=== PATIENT | male | born 1955 | race Caucasian/White ===

== ENCOUNTER 2017-06-23 06:15 | Inpatient (IN) | payer OTHER ==
[2017-06-23] MEDS ORDERED: MORPHINE SULFATE 5 MG/ML PFS IVP ONE ×2 (06:33→09:31)
[2017-06-23] MEDS ORDERED: ONDANSETRON HCL IV 4 MG/2 ML VIAL IVP ONE ×2 (06:33→11:09)
[2017-06-23] MEDS ORDERED: DIAZEPAM 5 MG TABLET PO ONE (06:33)
--- NOTE | 2017-06-23 06:40 | Emergency Department Record ---
History of Present Illness - General Chief Complaint: Back Pain/Injury Stated Complaint: "BUMPED BACK ON COUNTER" Time Seen by Provider: 06/23/17 06:26 Source: Patient Mode of Arrival: Ambulatory Limitations: No limitations - History of Present Illness Initial Comments: 61 yo male presents to ED for evaluation of left sided flank pain that began last night after "bumping himself into a counter". Patient reports taking Flexeril for his symptoms without improvement. Patient reports pain and spasms to the affected area. Patient reports previous health problems "that are in your system, he's here all the time". Complaint: Back pain, Back injury Onset/Timin -: Hour(s) Place: Home Severity: Severe Severity scale (1-10): >10 Quality: Sharp, Stabbing Consistency: Constant Improves With: None Worsens With: Movement, Sitting upright Context: Other Associated Symptoms: Denies other symptoms Treatments Prior to Arrival: Other (Flexeril) Treatment Prior to Arrival Comment:: none - Related Data Allergies Allergy/AdvReac Type Severity Reaction Status Date / Time codeine [CODEINE] Allergy Unknown HIVES Unverified 05/16/17 13:33 Travel Screening - Travel/Exposure Within Last 30 Days Have you traveled within the last 30 days?: No - Travel/Exposure Within Last Year Have you traveled outside the [place] in the last year?: No - Additonal Travel Details Have you been exposed to anyone with a communicable illness?: No - Travel Symptoms Symptom Screening: None Review of Systems Constitutional: Denies: Chills, Fever, Malaise, Night sweats Eyes: Denies: Eye discharge, Eye pain ENT: Denies: Congestion, Ear pain, Epistaxis Respiratory: Denies: Cough, Dyspnea Cardiovascular: Denies: Chest pain, Dyspnea on exertion Endocrine: Denies: Fatigue, Heat or cold intolerance Gastrointestinal: Denies: Abdominal pain, Nausea, Vomiting Genitourinary: Denies: Dysuria, Hematuria, Incontinence Musculoskeletal: Reports: Back pain. Denies: Arthralgia, Gout, Joint swelling Skin: Denies: Bruising, Change in color Neurological: Denies: Abnormal gait, Confusion, Headache, Seizure Psychiatric: Denies: Anxiety Hematological/Lymphatic: Denies: Anemia, Blood Clots Past Medical History - SOCIAL HISTORY Smoking Status: Former smoker Alcohol Use: None Drug Use: None - RESPIRATORY Hx Respiratory Disorders: Yes Hx Asthma: Yes - CARDIOVASCULAR Hx Cardio Disorders: No - NEURO Hx Neuro Disorders: No - GI Hx GI Disorders: Yes Hx Pancreatitis: Yes Comment:: bloating - Hx Genitourinary Disorders: No - ENDOCRINE Hx Endocrine Disorders: No - MUSCULOSKELETAL Hx Musculoskeletal Disorders: Yes Hx Arthritis: Yes - PSYCH Hx Anxiety: Yes Hx Depression: Yes - HEMATOLOGY/ONCOLOGY Hx Hematology/Oncology Disorders: No Family Medical History Any Significant Family History?: No Physical Exam - General General Appearance: Alert, Oriented x3, Cooperative, Moderate distress Limitations: No limitations - Head Head exam: Atraumatic, Normocephalic, Normal inspection Head exam detail: negative: Abrasion, Contusion, Infante's sign, General tenderness, Hematoma, Laceration - Eye Eye exam: Normal appearance. negative: Conjunctival injection, Periorbital swelling, Periorbital tenderness, Scleral icterus - ENT Ear exam: negative: Auricular hematoma, Auricular trauma Nasal Exam: negative: Active bleeding, Discharge, Dried blood, Foreign body Mouth exam: negative: Drooling, Laceration, Muffled voice, Tongue elevation - Neck Neck exam: Normal inspection. negative: Meningismus, Tenderness - Respiratory Respiratory exam: Normal lung sounds bilaterally. negative: Rales, Respiratory distress, Rhonchi, Stridor - Cardiovascular Cardiovascular Exam: Regular rate, Normal rhythm, Normal heart sounds - GI/Abdominal GI/Abdominal exam: Soft. negative: Rebound, Rigid, Tenderness - Rectal Rectal exam: Deferred - exam: Deferred - Extremities Extremities exam: Normal inspection. negative: Calf tenderness, Pedal edema, Tenderness - Back Back exam: Reports: CVA tenderness (L). Denies: Paraspinal tenderness, Rash noted, Vertebral tenderness - Neurological Neurological exam: Alert, Normal gait, Oriented X3 - Psychiatric Psychiatric exam: Normal affect, Normal mood - Skin Skin exam: Normal color. negative: Abrasion Type of lesion: negative: abrasion Course Vital Signs 06/23/17 06:27 Temperature 98.9 F Pulse Rate [ 122 H Pulse Ox Probe] Respiratory 20 Rate Blood Pressure 134/75 [Left Arm] Pulse Ox 96 - Reevaluation(s) Reevaluation #1: 06/23/17 06:55 Case was discussed with oncoming provider, will assume care pending laboratory studies and CT imaging results. Medical Decision Making - Lab Data Result diagrams: 06/23/17 06:30 06/23/17 06:30 Disposition Forms: Patient Portal Access Quality - Quality Measures Quality Measures: N/A - Blood Pressure Screening Does Patient Have Any of the Following: No Blood Pressure Classification: Pre-Hypertensive BP Reading Systolic Measurement: 134 Diastolic Measurement: 75 Screening for High Blood Pressure: < Pre-Hypertensive BP, F/U Documented > [ [id number]] Pre-Hypertensive Follow-up Interventions: Referral to alternative/primary care provider.
[2017-06-23] MEDS ORDERED: 0.9 % SODIUM CHLORIDE 1000ML 1,000 ML IV SCH (06:45)
[2017-06-23 06:52] LABS: HEMOGLOBIN 13.6 gm/dl (14.0-18.0); MEAN CELL VOLUME 87.2 fl (81-97); MEAN CORPUSCULAR HEMOGLOBIN 30.4 pg (27-33); MEAN CORPUSCULAR HGB CONC 34.9 g/dl (32-36); MEAN PLATELET VOLUME 8.8 fl (7.4-10.4); PLATELET COUNT 290 K/uL (130-400); RED BLOOD COUNT 4.47 M/uL (4.40-5.70); RED CELL DISTRIBUTION WIDTH 13.6 % (11.5-14.5); WHITE BLOOD COUNT W/O DIFF 7.4 K/uL (4.2-12.2)
[2017-06-23 07:25] LABS: URINE APPEARANCE CLEAR; URINE BILIRUBIN NEGATIVE (NEGATIVE); URINE BLOOD NEGATIVE (NEGATIVE); URINE COLOR YELLOW; URINE GLUCOSE (UA) NEGATIVE (NEGATIVE); URINE KETONE 15 mg/dL (NEGATIVE); URINE LEUKOCYTE ESTERASE NEGATIVE (NEGATIVE); URINE NITRITE NEGATIVE (NEGATIVE); URINE PROTEIN NEGATIVE (NEGATIVE); URINE UROBILINOGEN 0.2 E.U./dL (0.20 - 1.00)
[2017-06-23 07:42] LABS: BLOOD UREA NITROGEN 10 mg/dL (6-20); CREATININE 0.9 mg/dL (0.7-1.2); EST GLOMERULAR FILTRATION RATE > 60 mL/min
[2017-06-23 07:43] LABS: TOTAL PROTEIN 7.7 g/dL (6.6-8.7)
[2017-06-23 07:45] LABS: GLUCOSE,RANDOM 89 mg/dL (74-109)
[2017-06-23 07:48] LABS: ALB/GLOB RATIO 1.8 (1.1-1.8); ALBUMIN 4.9 g/dL (4.0-5.0); ALKALINE PHOSPHATASE 83 U/L (40-129); ALT/SGPT 26 U/L (<41); AST/SGOT 44 U/L (10.0-50.0)
--- NOTE | 2017-06-23 08:26 | Emergency Department Record ---
History of Present Illness - General Chief Complaint: Back Pain/Injury Stated Complaint: "BUMPED BACK ON COUNTER" Time Seen by Provider: 06/23/17 06:26 Source: Patient Limitations: No limitations - History of Present Illness Onset/Timin -: Hour(s) Place: Home Severity: Severe Severity scale (1-10): >10 Quality: Sharp, Stabbing Consistency: Constant Improves With: None Worsens With: Movement, Sitting upright Context: Other Associated Symptoms: Denies other symptoms Treatments Prior to Arrival: Other (Flexeril) Treatment Prior to Arrival Comment:: none - Related Data Allergies Allergy/AdvReac Type Severity Reaction Status Date / Time codeine [CODEINE] Allergy Unknown HIVES Unverified 05/16/17 13:33 Travel Screening - Travel/Exposure Within Last 30 Days Have you traveled within the last 30 days?: No - Travel/Exposure Within Last Year Have you traveled outside the [place] in the last year?: No - Additonal Travel Details Have you been exposed to anyone with a communicable illness?: No - Travel Symptoms Symptom Screening: None Review of Systems Constitutional: Denies: Chills, Fever, Malaise, Night sweats Eyes: Denies: Eye discharge, Eye pain ENT: Denies: Congestion, Ear pain, Epistaxis Respiratory: Denies: Cough, Dyspnea Cardiovascular: Denies: Chest pain, Dyspnea on exertion Endocrine: Denies: Fatigue, Heat or cold intolerance Gastrointestinal: Denies: Abdominal pain, Nausea, Vomiting Genitourinary: Denies: Dysuria, Hematuria, Incontinence Musculoskeletal: Reports: Back pain. Denies: Arthralgia, Gout, Joint swelling Skin: Denies: Bruising, Change in color Neurological: Denies: Abnormal gait, Confusion, Headache, Seizure Psychiatric: Denies: Anxiety Hematological/Lymphatic: Denies: Anemia, Blood Clots Past Medical History - SOCIAL HISTORY Smoking Status: Former smoker Alcohol Use: None Drug Use: None - RESPIRATORY Hx Respiratory Disorders: Yes Hx Asthma: Yes - CARDIOVASCULAR Hx Cardio Disorders: No - NEURO Hx Neuro Disorders: No - GI Hx GI Disorders: Yes Hx Pancreatitis: Yes Comment:: bloating - Hx Genitourinary Disorders: No - ENDOCRINE Hx Endocrine Disorders: No - MUSCULOSKELETAL Hx Musculoskeletal Disorders: Yes Hx Arthritis: Yes - PSYCH Hx Anxiety: Yes Hx Depression: Yes - HEMATOLOGY/ONCOLOGY Hx Hematology/Oncology Disorders: No Family Medical History Any Significant Family History?: No Physical Exam - General Limitations: No limitations Course Vital Signs 06/23/17 06/23/17 06:27 07:12 Temperature 98.9 F Pulse Rate [ 122 H 98 H Pulse Ox Probe] Respiratory 20 20 Rate Blood Pressure 134/75 110/64 [Left Arm] Pulse Ox 96 94 L - Reevaluation(s) Reevaluation #1: The patient is doing a lot better at this time. He is resting comfortably in no distress. We are waiting on his CT report and I did order a repeat electrolytes due to the previous abnormality of the sodium which I believe is not correct. 06/23/17 08:25 Reevaluation #2: The patient is doing well but is still having some L flank pain. I did explain to him that he does have a rib fx there. I also did recheck his Lytes and his Sodium is still significantly low. Due to that fact I did discuss the need to admit the patient to the hospital overnight and treat his pain and also the URI. The patient does agree to the plan. 06/23/17 09:42 Reevaluation #3: I did discuss the case with Dr. Phillips and he does accept the admission to the hospital. 06/23/17 10:01 Medical Decision Making - Data Complexity MDM Data: Labs Ordered and/or Reviewed, X-Ray Ordered and/or Reviewed, EKG Ordered and/or Reviewed - Lab Data Result diagrams: 06/23/17 06:30 06/23/17 07:50 Lab Results 06/23/17 06/23/17 06/23/17 Range/Units 06:30 06:30 07:15 WBC 7.4 (4.2-12.2) K/uL RBC 4.47 (4.40-5.70) M/uL Hgb 13.6 L (14.0-18.0) gm/dl Hct 39.0 L (42.0-52.0) % MCV 87.2 (81-97) fl MCH 30.4 (27-33) pg MCHC 34.9 (32-36) g/dl RDW 13.6 (11.5-14.5) % Plt Count 290 (130-400) K/uL MPV 8.8 (7.4-10.4) fl Neutrophils % 54.0 (47-80) % Band Neutrophils % 0.0 (0-5) % Eosinophils % Not Reportable Basophils % Not Reportable Lymphocytes 21.0 (16-45) % Monocytes 9.0 (0-9) % Basophils 0.0 (0-6) % Eosinophil Count 16.0 H (0-6) % Sodium 123 L (136-145) mmol/L Potassium 4.8 H (3.4-4.5) mmol/L Chloride 84 L (98-107) mmol/L Carbon Dioxide 22.0 (22-29) mmol/L Anion Gap 17.0 H (7-16) BUN 10 (6-20) mg/dL Creatinine 0.9 (0.7-1.2) mg/dL Estimated GFR > 60 mL/min Random Glucose 89 (74-109) mg/dL Calcium 9.5 (8.6-10.0) mg/dL Total Bilirubin 1.20 H (0.2-1.0) mg/dL AST 44 (10.0-50.0) U/L ALT 26 (<41) U/L Alkaline Phosphatase 83 (40-129) U/L Total Protein 7.7 (6.6-8.7) g/dL Albumin 4.9 (4.0-5.0) g/dL Globulin 2.8 (1.4-4.8) gm/dL Albumin/Globulin Ratio 1.8 (1.1-1.8) Urine Color Yellow Urine Appearance Clear Urine pH 6.0 (5.0-8.0) Ur Specific [place] 1.015 (1.002-1.030) Urine Protein Negative (NEGATIVE) Urine Glucose (UA) Negative (NEGATIVE) Urine Ketones 15 mg/dl H (NEGATIVE) Urine Blood Negative (NEGATIVE) Urine Nitrite Negative (NEGATIVE) Urine Bilirubin Negative (NEGATIVE) Urine Urobilinogen 0.2 (0.20 - 1.00) E.U./dL Ur Leukocyte Esterase Negative (NEGATIVE) - EKG Data -: EKG Interpreted by Me EKG: No Acute Changes, Normal EKG - Radiology Data Radiology results: Report reviewed (CT: L T11 nondisplaced rib fx. Neg for any intra-abdominal process.) Disposition Disposition: Admit Clinical Impression: Hyponatremia Disposition: Still a Patient at [facility] Decision to Admit: Admit from ER Decision to Admit Date: 06/23/17 Decision to Admit Time: 10:02 Accepting Physician: Alan Time Discussed w/Accepting Physician: 10:02 Condition: (2) Stable Time of Disposition: 10:02 Quality - Quality Measures Quality Measures: N/A - Blood Pressure Screening View Details: Yes Does Patient Have Any of the Following: No Blood Pressure Classification: Normal BP Reading Systolic Measurement: 112 Diastolic Measurement: 71 Screening for High Blood Pressure: < Normal BP, F/U Not Required > [G8783]
[2017-06-23] MEDS ORDERED: METHYLPREDNISOLONE SOD 40MG/VIAL IVP ONE (09:31)
[2017-06-23] MEDS ORDERED: AZITHROMYCIN 500 MG TABLET PO ONE (09:32)
[2017-06-23] MEDS ORDERED: Non-Formulary MISC (Meloxicam [Meloxicam] 15 MG) PO PRN (11:09)
[2017-06-23] MEDS ORDERED: FLU VAC QS 2017-18 (INPT, 6MO+) 60MCG/0.5ML IM ONE (11:45)
[2017-06-23] MEDS ORDERED: CYCLOBENZAPRINE 10MG TABLET PO PRN (11:58)
[2017-06-23] MEDS ORDERED: 0.9 % SODIUM CHLORIDE 1000ML 1,000 ML IV PRN (12:03)
--- NOTE | 2017-06-23 12:51 | History & Physical ---
History of Present Illness - Date of Service Date of Service for History & Physical: 06/23/17 - History of Present Illness Admitting Diagnosis: 1. Acute Hyponatremia. 2. Asthma Exacerbation. 3. L T11 Rib Fx. History of Present Illness: Mr. Mills is a 61 y/o male here after having a fall at home and with a one week complaint of progressive shortness of breath. he says that he had a mis step while cooking and fell injuring his left side. The patient has had falls fracturing his ribs in the past. He denies dizziness, weakness, unsteady gait or head injury from the fall. The patient does report alcohol use daily drinking a minimum of six beers. Additionally, he has a history of severe uncontrolled asthma with more than four exacerbations a year requiring hospital admission abut denies ever being intubated. On arrival to the ED the patient's chest examination reveals non-displaced fracture of the 11th left lateral rib and a healed 10th right lateral rib fracture and labs showed severe hyponatremia of 124. The patient's saturations are stable, without requiring supplemental oxygenation. He was started on IV solumedrol, and respiratory therapy with albuterol. He was given 1 liter 0.9% Nacl in the ED and admitted for monitoring of electrolytes and his asthma exacerbations. Travel Screening - Travel/Exposure Within Last 30 Days Have you traveled within the last 30 days?: No - Travel/Exposure Within Last Year Have you traveled outside the [place] in the last year?: No - Additonal Travel Details Have you been exposed to anyone with a communicable illness?: No - Travel Symptoms Symptom Screening: None Review of Systems Constitutional: Denies: Chills, Fever, Malaise, Night sweats Eyes: Denies: Eye discharge, Eye pain ENT: Denies: Congestion, Ear pain, Epistaxis Respiratory: Denies: Cough, Dyspnea Cardiovascular: Denies: Chest pain, Dyspnea on exertion Endocrine: Denies: Fatigue, Heat or cold intolerance Gastrointestinal: Denies: Abdominal pain, Nausea, Vomiting Genitourinary: Denies: Dysuria, Hematuria, Incontinence Musculoskeletal: Reports: Back pain. Denies: Arthralgia, Gout, Joint swelling Skin: Denies: Bruising, Change in color Neurological: Denies: Abnormal gait, Confusion, Headache, Seizure Psychiatric: Denies: Anxiety Hematological/Lymphatic: Denies: Anemia, Blood Clots Past Medical History - SOCIAL HISTORY Smoking Status: Former smoker Alcohol Use: Heavy Alcohol Use Comment: 6 pack of beer daily, last drink 3pm yesterday Drug Use: None - RESPIRATORY Hx Respiratory Disorders: Yes Hx Asthma: Yes Hx Bronchitis: Yes Hx Dyspnea: Yes - CARDIOVASCULAR Hx Cardio Disorders: Yes Hx Cardiac Cath: Yes (at [facility]) Hx Chest Pain: Yes Hx Hypertension: Yes - NEURO Hx Neuro Disorders: Yes Hx Headaches: Yes Hx Seizures: Yes (with mini stroke about 30 years ago) Hx TIA: Yes ("mini stroke" about 30 years ago) - GI Hx GI Disorders: Yes Hx Reflux: Yes Hx Pancreatitis: Yes Comment:: bloating, inguinal hernia repair - Hx Genitourinary Disorders: No - ENDOCRINE Hx Endocrine Disorders: No - MUSCULOSKELETAL Hx Musculoskeletal Disorders: Yes Hx Arthritis: Yes - PSYCH Hx Psych Problems: Yes Hx Anxiety: Yes Hx Depression: Yes - HEMATOLOGY/ONCOLOGY Hx Hematology/Oncology Disorders: No Hx Cancer: Yes (small cell carcinoma, basal cell carcinoma) Hx Chemotherapy: No Hx Radiation Therapy: No Family Medical History Any Significant Family History?: Yes Hx Alcohol Use: Father, Mother Hx Cancer: Father, Mother Hx Dementia: Mother Hx HTN: Mother Hx Liver Disease: Mother Hx Resp Disorders: Brother/Sister Hx Seizures: Mother Hx Stroke: Mother H&P Meds/Allergies - Allergies Allergies: Allergies Allergy/AdvReac Type Severity Reaction Status Date / Time codeine [CODEINE] Allergy Unknown HIVES Unverified 05/16/17 13:33 - Active Medications Active Medications: Current Medications Albuterol Sulfate () 2.5 mg INH Q4H PRN PRN Reason: Asthma Azithromycin (Zithromax) 250 mg PO DAILY JOHN Cyclobenzaprine HCl (Flexeril) 10 mg PO QHS PRN PRN Reason: MUSCLE SPASM Cyclobenzaprine HCl (Flexeril) 10 mg PO TID PRN PRN Reason: MUSCLE SPASMS Sodium Chloride () 1,000 mls @ 0 mls/hr IV .Q0M [facility] PRN Reason: Wide Open Last Infusion: 06/23/17 12:01 Dose: Infused Sodium Chloride () 1,000 mls @ 150 mls/hr IV .Q6H40M PRN PRN Reason: fluids Sodium Chloride () 1,000 mls @ 55 mls/hr IV .[id number] [facility] Meloxicam (Mobic) 15 mg PO DAILY [facility] Methylprednisolone Sodium Succinate (Solu-Medrol) 40 mg IVP DAILY ONE Stop: 06/24/17 10:23 Montelukast Sodium (Singulair) 10 mg PO DAILY [facility] Morphine Sulfate (Morphine Sulfate) 5 mg IVP Q4H PRN PRN Reason: Analgesia Stop: 06/30/17 11:10 Pantoprazole Sodium (Protonix) 40 mg PO DAILY [facility] Physical Exam - Vital Signs Vital Signs: Vital Signs - Last 24 Hrs Temp Pulse Pulse Resp BP BP Pulse Ox 06/23/17 11:09 97.5 F L 85 20 147/81 96 06/23/17 10:56 86 16 112/71 96 - General General Appearance: Alert, Oriented x3, Cooperative, Moderate distress Limitations: No limitations - Head Head exam: Atraumatic, Normocephalic, Normal inspection Head exam detail: negative: Abrasion, Contusion, Infante's sign, General tenderness, Hematoma, Laceration - Eye Eye exam: Normal appearance. negative: Conjunctival injection, Periorbital swelling, Periorbital tenderness, Scleral icterus - ENT Ear exam: negative: Auricular hematoma, Auricular trauma Nasal Exam: negative: Active bleeding, Discharge, Dried blood, Foreign body Mouth exam: negative: Drooling, Laceration, Muffled voice, Tongue elevation - Neck Neck exam: Normal inspection. negative: Meningismus, Tenderness - Respiratory Respiratory exam: Normal lung sounds bilaterally. negative: Rales, Respiratory distress, Rhonchi, Stridor - Cardiovascular Cardiovascular Exam: Regular rate, Normal rhythm, Normal heart sounds - GI/Abdominal GI/Abdominal exam: Soft. negative: Rebound, Rigid, Tenderness - Rectal Rectal exam: Deferred - exam: Deferred - Extremities Extremities exam: Normal inspection. negative: Calf tenderness, Pedal edema, Tenderness - Back Back exam: Reports: CVA tenderness (L). Denies: Paraspinal tenderness, Rash noted, Vertebral tenderness - Neurological Neurological exam: Alert, Normal gait, Oriented X3 - Psychiatric Psychiatric exam: Normal affect, Normal mood - Skin Skin exam: Normal color. negative: Abrasion Type of lesion: negative: abrasion Results - Labs Result Diagrams: 06/23/17 06:30 06/23/17 07:50 VTE H&P Assessment - Risk for VTE Risk for VTE: Yes Risk Level: Moderate Risk Assessment Date: 06/23/17 Risk Assessment Time: 13:09 VTE Orders Placed or Will Be Placed: Yes Plan - Inpatient Certification Inpatient Certification: Admit to inpatient care: Based on my medical assessment, after consideration of patient's risk factors (age, co-morbidities and patient presenting symptoms and acuity), I expect that this patient will remain in the hospital greater than or equal to two midnights and that the services needed warrant inpatient care because: Patient Risk Factors: Fall/Etoh withdrawal Estimated length of stay: 2 days The patient may reasonably be expected to be discharged or transferred to a hospital within 96 hours after admission to [facility]. I certify that my determination is in accordance with my understanding of Medicare requirements for reasonable and necessary inpatient services. 06/23/17 13:13 - Detailed Diagnosis and Plan (1) Left rib fracture Current Visit: Yes Status: Acute Base Code: S22.32XA - FRACTURE OF ONE RIB, LEFT SIDE, INIT FOR CLOS FX Comment: - acute non-displaced fracture of the 11th rib on the left. - morphine 5mg IV q4H PRN, Mobic 15mg daily, cyclobenzaprine 10mg TID PRN - incentive spirometry (2) Asthma exacerbation Current Visit: Yes Status: Acute Qualifiers: Asthma severity: severe Asthma persistence: persistent Qualified Code(s) : J45.51 - Severe persistent asthma with (acute) exacerbation Base Code: J45.901 - UNSPECIFIED ASTHMA WITH (ACUTE) EXACERBATION Comment: - CXR normal, Influenza A/B PCR ordered. - >4 exacerbations yearly requiring frequent use of PO steroids. On daily albuterol. spiriva, symbicort, qvar. - respiratory therapy w/ albuterol Q4H, Breo daily, Prednisons 40mg daily, peak flow measures. (3) Hyponatremia Current Visit: Yes Status: Acute Base Code: E87.1 - HYPO-OSMOLALITY AND HYPONATREMIA Comment: - severe hyponatremia w/ unknown etiology. Patient appears euvolemic. Already hydrated so cannot check Osmolality and urine Na. - likely as a result of excessive beer intake (8-10 beers/day ie Beer drinkers potomania possible. - careful Na correction over 12-24 hours. Pt already bolused 2 liters 0.9% Nacl. Calculatedrate of correction is 55mL/hr over 12-24hrs to a target of 130 meq. - avoid overcorrection with concern for central pontine myelynosis. - Check lytes at 6pm and in the am. (4) HTN (hypertension) Current Visit: Yes Status: Acute Base Code: I10 - ESSENTIAL (PRIMARY) HYPERTENSION Comment: - currently controlled @ 112/71 - hold BP medications and resume in the morning. (5) Alcohol use Current Visit: Yes Status: Acute Base Code: Z78.9 - OTHER SPECIFIED HEALTH STATUS Comment: - 8-10 beers daily - CIWA protocol, Fall precautions/Seizure precuations. (6) DVT prophylaxis Current Visit: Yes Status: Acute Base Code: [id number] - Comment: - Lovenox 40mg QD (7) Full code status Current Visit: Yes Status: Acute Base Code: Z78.9 - OTHER SPECIFIED HEALTH STATUS Comment: FULL CODE - Disposition Likely d/c home within 2 days.
--- NOTE | 2017-06-23 13:05 | CT SCAN REPORT ---
EXAM: CT OF THE ABDOMEN AND PELVIS WITH CONTRAST HISTORY: FLANK PAIN. TECHNIQUE: Sequential axial images were obtained from the diaphragms through the ischiorectal fossa after intravenous administration of 100 ml of Omnipaque 300 contrast material. FINDINGS: The visualized lung bases appear normal. The heart and pericardium appear normal. The liver, gallbladder, pancreas and spleen appear normal. The adrenal glands and kidneys appear normal. There are no CT findings suggestive of obstructive uropathy. The urinary bladder appears normal. There is equivocal mild wall thickening of the stomach. Gastritis cannot be entirely excluded. The small bowel appears normal. The appendix is visualized and appears normal. There is atheromatous change of the abdominal vasculature. IMPRESSION: 1. EQUIVOCAL MILD WALL THICKENING OF THE PROXIMAL STOMACH. CORRELATION WITH PATIENT'S CLINICAL EXAM AND POSSIBLE DIRECT VISUALIZATION IS RECOMMENDED. 2. NO CT FINDINGS SUGGESTIVE OF OBSTRUCTIVE UROPATHY. 3. THE APPENDIX IS VISUALIZED AND APPEARS NORMAL. JOB NUMBER: [id number] MTDD
--- NOTE | 2017-06-23 13:07 | RADIOLOGY REPORT ---
EXAM: CHEST, TWO VIEWS HISTORY: DIFFICULTY BREATHING. TECHNIQUE: Frontal and lateral views of the chest were performed. FINDINGS: The heart size is normal. No pulmonary vascular congestion. No infiltrate or pleural effusion. There is a nondisplaced left lateral eleventh rib fracture deformity. IMPRESSION: NONDISPLACED LEFT LATERAL ELEVENTH RIB FRACTURE DEFORMITY. JOB NUMBER: [id number] MTDD
[2017-06-23] MEDS: MORPHINE SULFATE 5 MG/ML PFS IVP PRN ×2 (14:32→18:37)
[2017-06-23] MEDS: 0.9 % SODIUM CHLORIDE 1000ML 1,000 ML IV SCH (18:00)
[2017-06-23] MEDS: ENOXAPARIN 40 MG/0.4 ML SYR SQ SCH (18:37)
[2017-06-23 20:08] LABS: BLOOD UREA NITROGEN 20 mg/dL (6-20); CREATININE 1.1 mg/dL (0.7-1.2); EST GLOMERULAR FILTRATION RATE > 60 mL/min
[2017-06-23 20:11] LABS: GLUCOSE,RANDOM 204 mg/dL (74-109)
[2017-06-23] MEDS: ALBUTEROL SULFATE (0.083%) 2.5 MG/3 ML NEB INH PRN (20:57)
[2017-06-23] MEDS: CYCLOBENZAPRINE 10MG TABLET PO PRN (21:11)
[2017-06-23] MEDS ORDERED: Non-Formulary MISC (Omeprazole [Omeprazole] 20 MG) PO SCH (22:00)
[2017-06-23] MEDS ORDERED: BREO (FLUTICASONE/VILANTEROL) 200MCG/25MCG INHALER INH SCH (22:00)
[2017-06-24] MEDS: ALBUTEROL SULFATE (0.083%) 2.5 MG/3 ML NEB INH PRN ×2 (01:12→06:01)
[2017-06-24] MEDS: MORPHINE SULFATE 5 MG/ML PFS IVP PRN (01:30)
[2017-06-24 06:08] LABS: BASO % 0.1 % (0-6); GRAN % 77.6 % (47-80); HEMATOCRIT 35.5 % (42.0-52.0); HEMOGLOBIN 11.9 gm/dl (14.0-18.0); MEAN CELL VOLUME 90.1 fl (81-97); MEAN CORPUSCULAR HEMOGLOBIN 30.2 pg (27-33); MEAN CORPUSCULAR HGB CONC 33.5 g/dl (32-36); MEAN PLATELET VOLUME 9.2 fl (7.4-10.4); MONO % 13.3 % (0-9); PLATELET COUNT 234 K/uL (130-400); RED BLOOD COUNT 3.94 M/uL (4.40-5.70); RED CELL DISTRIBUTION WIDTH 13.8 % (11.5-14.5); WHITE BLOOD COUNT W/O DIFF 8.1 K/uL (4.2-12.2)
[2017-06-24] MEDS: CYCLOBENZAPRINE 10MG TABLET PO PRN (07:50)
[2017-06-24] MEDS ORDERED: PREDNISONE 20 MG TAB PO SCH (08:00)
[2017-06-24 09:42] LABS: BLOOD UREA NITROGEN 17 mg/dL (6-20); CREATININE 0.9 mg/dL (0.7-1.2); EST GLOMERULAR FILTRATION RATE > 60 mL/min; GLUCOSE,RANDOM 112 mg/dL (74-109)
[2017-06-24] MEDS: ENOXAPARIN 40 MG/0.4 ML SYR SQ SCH (09:53)
[2017-06-24] MEDS ORDERED: PANTOPRAZOLE SODIUM 40 MG TABLET PO SCH (10:00)
[2017-06-24] MEDS ORDERED: MONTELUKAST SODIUM 10MG TABLET PO SCH (10:00)
[2017-06-24] MEDS ORDERED: UMECLIDINIUM BROMIDE (INCRUSE) 62.5MCG IH SCH (10:00)
[2017-06-24] MEDS ORDERED: AZITHROMYCIN 250 MG TABLET PO SCH (10:00)
[2017-06-24] MEDS ORDERED: VALSARTAN 160 MG PO SCH (10:00)
[2017-06-24] MEDS ORDERED: MELOXICAM 7.5 MG TABLET PO SCH (10:00)
[2017-06-24] MEDS ORDERED: METHYLPREDNISOLONE SOD 40MG/VIAL IVP ONE (10:22)
--- NOTE | 2017-06-24 11:31 | Discharge Summary ---
Providers Discharge Summary Date: 06/24/17 Date of admission: 06/23/17 10:49 Attending physician: ALESSIO COBOS Primary care physician: YONAS STANLEY Physical Exam - Vital Signs Vital Signs: Vital Signs - Last 24 Hrs Temp Pulse Pulse Resp BP BP Pulse Ox 06/24/17 08:39 20 06/24/17 08:00 99 F 99 H 16 155/86 96 06/24/17 06:01 76 20 06/24/17 04:00 98.1 F 83 16 133/89 98 06/24/17 01:12 74 18 06/24/17 00:08 98.1 F 79 16 140/85 96 06/23/17 21:15 88 20 06/23/17 21:13 88 20 06/23/17 21:00 16 06/23/17 20:57 84 20 06/23/17 20:31 98.5 F 92 H 16 136/90 06/23/17 13:09 98.2 F 106 H 18 108/66 96 06/23/17 12:15 16 - General General Appearance: Alert, Oriented x3, Cooperative, Moderate distress Limitations: No limitations - Head Head exam: Atraumatic, Normocephalic, Normal inspection Head exam detail: negative: Abrasion, Contusion, Infante's sign, General tenderness, Hematoma, Laceration - Eye Eye exam: Normal appearance. negative: Conjunctival injection, Periorbital swelling, Periorbital tenderness, Scleral icterus - ENT Ear exam: negative: Auricular hematoma, Auricular trauma Nasal Exam: negative: Active bleeding, Discharge, Dried blood, Foreign body Mouth exam: negative: Drooling, Laceration, Muffled voice, Tongue elevation - Neck Neck exam: Normal inspection. negative: Meningismus, Tenderness - Respiratory Respiratory exam: Normal lung sounds bilaterally. negative: Rales, Respiratory distress, Rhonchi, Stridor - Cardiovascular Cardiovascular Exam: Regular rate, Normal rhythm, Normal heart sounds - GI/Abdominal GI/Abdominal exam: Soft. negative: Rebound, Rigid, Tenderness - Rectal Rectal exam: Deferred - exam: Deferred - Extremities Extremities exam: Normal inspection. negative: Calf tenderness, Pedal edema, Tenderness - Back Back exam: Reports: CVA tenderness (L). Denies: Paraspinal tenderness, Rash noted, Vertebral tenderness - Neurological Neurological exam: Alert, Normal gait, Oriented X3 - Psychiatric Psychiatric exam: Normal affect, Normal mood - Skin Skin exam: Normal color. negative: Abrasion Type of lesion: negative: abrasion Hospitalization - Hospitalization Admission Diagnosis: 1. Acute Hyponatremia. 2. Asthma Exacerbation. 3. L T11 Rib Fx. - Problem List/Discharge Diagnosis (1) Left rib fracture Status: Acute Base Code: S22.32XA - FRACTURE OF ONE RIB, LEFT SIDE, INIT FOR CLOS FX Comment: - acute non-displaced fracture of the 11th rib on the left. - morphine 5mg IV q4H PRN, Mobic 15mg daily, cyclobenzaprine 10mg TID PRN - incentive spirometry (2) Asthma exacerbation Status: Acute Discharge Diagnosis: Asthma severity: severe Asthma persistence: persistent Qualified Code(s) : J45.51 - Severe persistent asthma with (acute) exacerbation Base Code: J45.901 - UNSPECIFIED ASTHMA WITH (ACUTE) EXACERBATION Comment: - CXR normal, Influenza A/B PCR ordered. - >4 exacerbations yearly requiring frequent use of PO steroids. On daily albuterol. spiriva, symbicort, qvar. - respiratory therapy w/ albuterol Q4H, Breo daily, Prednisons 40mg daily, peak flow measures. (3) Hyponatremia Status: Acute Base Code: E87.1 - HYPO-OSMOLALITY AND HYPONATREMIA Comment: - severe hyponatremia w/ unknown etiology. Patient appears euvolemic. Already hydrated so cannot check Osmolality and urine Na. - likely as a result of excessive beer intake (8-10 beers/day ie Beer drinkers potomania possible. - careful Na correction over 12-24 hours. Pt already bolused 2 liters 0.9% Nacl. Calculatedrate of correction is 55mL/hr over 12-24hrs to a target of 130 meq. - avoid overcorrection with concern for central pontine myelynosis. - Check lytes at 6pm and in the am. (4) HTN (hypertension) Status: Acute Base Code: I10 - ESSENTIAL (PRIMARY) HYPERTENSION Comment: - currently controlled @ 112/71 - hold BP medications and resume in the morning. (5) Alcohol use Status: Acute Base Code: Z78.9 - OTHER SPECIFIED HEALTH STATUS Comment: - 8-10 beers daily - CIWA protocol, Fall precautions/Seizure precuations. (6) DVT prophylaxis Status: Acute Base Code: [id number] - Comment: - Lovenox 40mg QD (7) Full code status Status: Acute Base Code: Z78.9 - OTHER SPECIFIED HEALTH STATUS Comment: FULL CODE - Disposition Likely d/c home within 2 days. - Hospitalization Course Disposition: Home, Self-Care Abnormal Labs: Abnormal Lab Results 06/23/17 06/24/17 06/24/17 Range/Units 19:18 05:30 05:30 RBC 3.94 L (4.40-5.70) M/uL Hgb 11.9 L (14.0-18.0) gm/dl Hct 35.5 L (42.0-52.0) % Lymphocytes % 9.0 L (16-45) % Monocytes % 13.3 H (0-9) % Sodium 127 L (136-145) mmol/L Potassium 4.9 H 4.6 H (3.4-4.5) mmol/L Chloride 92 L (98-107) mmol/L Carbon Dioxide 21.0 L (22-29) mmol/L Random Glucose 204 H 112 H (74-109) mg/dL Condition at Discharge: (2) Stable Discharge Medications - Discharge Medications Prescriptions: Hydromorphone HCl [Dilaudid] 2 mg PO Q6H PRN 4 Days #16 tab PRN Reason: Pain - General Prednisone [Prednisone 20Mg] 40 mg PO DAILYWM #8 tab Home Medications: Ambulatory Orders Hydromorphone HCl [Dilaudid] 2 mg PO Q6H PRN 4 Days #16 tab 06/24/17 [Last Taken Unknown] Prednisone [Prednisone 20Mg] 40 mg PO DAILYWM #8 tab 06/24/17 [Last Taken Unknown] Discharge Plan - Discharge Instructions Activity at Discharge: Resume Usual Activities As Tolerated Diet at Discharge: Regular Diet Instructions: Rib Fracture (DC), Hyponatremia (DC), Acute Bronchitis (GEN) Additional Instructions: Follow up with your doctor this week. Take prednisone as directed. Dilaudid for severe pain-one by mouth every6 hours as needed for pain. No alcohol or driving while taking this med. Resume home meds Diet and activity as tolerated. Return to the ED if more difficulty breathing, or uncontrolled pain Quality Measures - Quality Measures Quality Measures: Documentation of Current Medications in Medical Record, Screening for High Blood Pressure and F/U Documented - Current Medications Quality Measure: Measure #130: Documentation of Current Medications Documentation of Current Medications: <Current Medications Documented/Reviewed> [G8427] - Blood Pressure Screening Quality Measure: Screening for High Blood Pressure and Follow-Up Documented Does Patient Have Any of the Following: Active Dx of HTN Blood Pressure Classification: Normal BP Reading Systolic Measurement: 112 Diastolic Measurement: 71 Screening for High Blood Pressure: Patient Exclusion, Hx of HTN [G9744] - Elder Abuse Suspicion Index EASI Reference Information: Raven STEIN, Mary C, Fany Burrell, Vicenta Almaraz.Development and validation of a tool to assist physicians identification of elder abuse: The Elder Abuse Suspicion Index (EASI ). Journal of Elder Abuse and Neglect, 2008; 20 (3): 276-300.
[2017-06-24] MEDS: 0.9 % SODIUM CHLORIDE 1000ML 1,000 ML IV SCH (12:30)
[2017-06-24] MEDS ORDERED: BREO (FLUTICASONE/VILANTEROL) 200MCG/25MCG INHALER INH SCH (22:00)
== END 2017-06-24 13:30 | disposition home or self-care (01) | DRG 206 ==
LOC: ER 06:15 → MEDSURG 10:49 → UNDODISIN 16:45
PROVIDERS: ADMIT Internal Medicine; ATTEND Internal Medicine
DX: S22.32XA Fracture of one rib, left side, initial encounter for closed fracture (principal); E87.1 Hypo-osmolality and hyponatremia; J45.901 Unspecified asthma with (acute) exacerbation; F10.988 Alcohol use, unspecified with other alcohol-induced disorder; I10 Essential (primary) hypertension; M54.5 Low back pain; Z87.891 Personal history of nicotine dependence; Z86.73 Personal history of transient ischemic attack (TIA), and cerebral infarction without residual deficits; Z78.9 Other specified health status
CPT/HCPCS: 71046; 74177; 80048; 80051; 80053; 81003; 85025; 85027; 90686; 93005; 93010; 94010; 94640; 96374; 96375; 96376; 99223; 99239; 99285; J1650; J2405; J2920; J7030; J7512; J7613

== ENCOUNTER 2019-05-08 12:56 | Emergency (ER) | payer OTHER ==
[2019-05-08] MEDS ORDERED: ONDANSETRON HCL IV 4 MG/2 ML VIAL IV ONE (14:23)
[2019-05-08] MEDS ORDERED: 0.9 % SODIUM CHLORIDE 1000ML 1,000 ML IV ONE (14:23)
--- NOTE | 2019-05-08 14:26 | Emergency Department Record ---
History of Present Illness - General Chief Complaint: Abdominal Pain Stated Complaint: MID AREA ABD PAIN, WEIGHT LOSS Time Seen by Provider: 05/08/19 14:07 Source: Patient Mode of Arrival: Ambulatory - History of Present Illness Initial Comments: 11 weeks of abdominal pain and weight loss of 30 pounds and no appetite and he he has epigastric abd pain and upper quad abd pain. Abd is oft no rigidity or rebound with some guarding with palpation. patient states only drank 6 beers in the last week and he used to drink heavy. MD Complaint: Abdominal pain Onset/Timin -: Month(s) Location: Diffuse Severity: Moderate Severity scale (1-10): 7 Quality: Aching, Dull Consistency: Constant Improves With: Nothing Worsens With: Nothing Associated Symptoms: Melena - Related Data Previous Rx's Medication Instructions Recorded Omeprazole 20 mg PO DAILY #30 tablet. 05/08/19 Allergies Allergy/AdvReac Type Severity Reaction Status Date / Time codeine [CODEINE] Allergy Unknown HIVES Verified 05/08/19 13:32 Travel Screening - Travel/Exposure Within Last 30 Days Have you traveled within the last 30 days?: No - Travel/Exposure Within Last Year Have you traveled outside the [place] in the last year?: No - Additonal Travel Details Have you been exposed to anyone with a communicable illness?: No - Travel Symptoms Symptom Screening: None Review of Systems Reviewed: No additional complaints except as noted below Constitutional: Reports: As per HPI. Denies: Chills, Fever, Malaise, Night sweats, Weakness, Weight change Eyes: Reports: As per HPI. Denies: Eye discharge, Eye pain, Photophobia, Vision change ENT: Reports: As per HPI. Denies: Congestion, Dental pain, Ear pain, Epistaxis, Hearing loss, Throat pain Respiratory: Reports: As per HPI. Denies: Cough, Dyspnea, Hemoptysis, Stridor, Wheezes Cardiovascular: Reports: As per HPI. Denies: Arrhythmia, Chest pain, Dyspnea on exertion, Edema, Murmurs, Orthopnea, Palpitations, Paroxysmal nocturnal dyspnea, Rheumatic Fever, Syncope Endocrine: Reports: As per HPI. Denies: Fatigue, Heat or cold intolerance, Polydipsia, Polyuria Gastrointestinal: Reports: As per HPI. Denies: Abdominal pain, Constipation, Diarrhea, Hematemesis, Hematochezia, Melena, Nausea, Vomiting Genitourinary: Reports: As per HPI. Denies: Dysuria, Frequency, Hematuria, Incontinence, Retention, Testicular pain, Testicular mass, Urgency Musculoskeletal: Reports: As per HPI. Denies: Arthralgia, Back pain, Gout, Joint swelling, Myalgia, Neck pain Skin: Reports: As per HPI. Denies: Bruising, Change in color, Change in hair/nails, Lesions, Pruritus, Rash Neurological: Reports: As per HPI. Denies: Abnormal gait, Confusion, Headache, Numbness, Paresthesias, Seizure, Tingling, Tremors, Vertigo, Weakness Psychiatric: Reports: As per HPI. Denies: Anxiety, Auditory hallucinations, Depression, Homicidal thoughts, Suicidal thoughts, Visual hallucinations Hematological/Lymphatic: Reports: As per HPI. Denies: Anemia, Blood Clots, Easy bleeding, Easy bruising, Swollen glands Past Medical History - SOCIAL HISTORY Smoking Status: Former smoker Alcohol Use: Occasional Drug Use: None - RESPIRATORY Hx Respiratory Disorders: Yes Hx Asthma: Yes Hx Bronchitis: Yes Hx Dyspnea: Yes - CARDIOVASCULAR Hx Cardio Disorders: Yes Hx Cardiac Cath: Yes (at [facility]) Hx Chest Pain: Yes Hx Hypertension: Yes - NEURO Hx Neuro Disorders: Yes Hx Headaches: Yes Hx Seizures: Yes (with mini stroke about 30 years ago) Hx TIA: Yes ("mini stroke" about 30 years ago) - GI Hx GI Disorders: Yes Hx Reflux: Yes Hx Pancreatitis: Yes Comment:: bloating, inguinal hernia repair - Hx Genitourinary Disorders: No - ENDOCRINE Hx Endocrine Disorders: No - MUSCULOSKELETAL Hx Musculoskeletal Disorders: Yes Hx Arthritis: Yes - PSYCH Hx Psych Problems: Yes Hx Anxiety: Yes Hx Depression: Yes - HEMATOLOGY/ONCOLOGY Hx Hematology/Oncology Disorders: No Hx Cancer: Yes (small cell carcinoma, basal cell carcinoma) Hx Chemotherapy: No Hx Radiation Therapy: No Family Medical History Any Significant Family History?: Yes Hx Alcohol Use: Father, Mother Hx Cancer: Father, Mother Hx Dementia: Mother Hx HTN: Mother Hx Liver Disease: Mother Hx Resp Disorders: Brother/Sister Hx Seizures: Mother Hx Stroke: Mother Physical Exam - General General Appearance: Alert, Oriented x3, Cooperative, No acute distress - Head Head exam: Normal inspection - Eye Eye exam: Normal appearance, PERRL Pupils: Normal accommodation - ENT ENT exam: Normal exam, Mucous membranes moist, Normal external ear exam, Normal orophraynx, TM's normal bilaterally Ear exam: Normal external inspection. negative: External canal tenderness Nasal Exam: Normal inspection. negative: Discharge, Sinus tenderness Mouth exam: Normal external inspection, Tongue normal Teeth exam: Normal inspection. negative: Dental caries Throat exam: Normal inspection. negative: Tonsillar erythema, Tonsillar exudate - Neck Neck exam: Normal inspection, Full ROM. negative: Tenderness - Respiratory Respiratory exam: Normal lung sounds bilaterally. negative: Respiratory distress - Cardiovascular Cardiovascular Exam: Regular rate, Normal rhythm, Normal heart sounds - GI/Abdominal GI/Abdominal exam: Soft, Normal bowel sounds, Tenderness (epigastric and upper abd pain) - Rectal Rectal exam: Deferred - exam: Deferred - Extremities Extremities exam: Normal inspection, Full ROM, Normal capillary refill. negative: Tenderness - Back Back exam: Reports: Normal inspection, Full ROM. Denies: Muscle spasm, Rash not ed, Tenderness - Neurological Neurological exam: Alert, Normal gait, Oriented X3, Reflexes normal - Psychiatric Psychiatric exam: Normal affect, Normal mood - Skin Skin exam: Dry, Intact, Normal color, Warm Course Vital Signs 05/08/19 05/08/19 13:25 13:35 Temperature 97.9 F 97.9 F Pulse Rate 84 Pulse Rate [ 84 Pulse Ox Probe] Respiratory 20 20 Rate Blood Pressure 139/79 Blood Pressure 139/79 [Left Arm] Pulse Ox 99 99 - Reevaluation(s) Reevaluation #1: 05/08/19 16:32 feeling better and reading a book in the ED Medical Decision Making - Data Complexity MDM Data: Labs Ordered and/or Reviewed, X-Ray Ordered and/or Reviewed (gastric wall thickening), EKG Ordered and/or Reviewed (no acute changes) - Lab Data Result diagrams: 05/08/19 14:00 05/08/19 14:00 Disposition Clinical Impression: Elevated liver enzymes Abdominal pain Qualifiers: Abdominal location: epigastric Qualified Code(s): R10.13 - Epigastric pain Gastritis Qualifiers: Gastritis type: unspecified gastritis Chronicity: acute Gastritis bleeding: without bleeding Qualified Code(s): K29.00 - Acute gastritis without bleeding Disposition: Home, Self-Care Condition: (2) Stable Instructions: Abdominal Pain (ED) Additional Instructions: [facility] also follow up with GI for possible EGD may also need US to check out his GAll bladder eleveated liver enzymes take omeprazole twice a day Prescriptions: Omeprazole 20 mg PO DAILY #30 tablet.dr Forms: Patient Portal Access Time of Disposition: 16:27 Quality - Quality Measures Quality Measures: N/A - Blood Pressure Screening Does Patient Have Any of the Following: No Blood Pressure Classification: Pre-Hypertensive BP Reading Systolic Measurement: 139 Diastolic Measurement: 79 Screening for High Blood Pressure: < Pre-Hypertensive BP, F/U Documented > [G8 950] Pre-Hypertensive Follow-up Interventions: Referral to alternative/primary care provider.
[2019-05-08 14:35] LABS: ABSOLUTE NEUTROPHIL COUNT 3.99; BASO % 0.9 % (0-6); EOS % 1.3 % (0-6); GRAN % 72.6 % (47-80); HEMATOCRIT 36.4 % (42.0-52.0); HEMOGLOBIN 12.5 gm/dl (14.0-18.0); LYMPH % 15.7 % (16-45); MEAN CELL VOLUME 88.6 fl (81-97); MEAN CORPUSCULAR HEMOGLOBIN 30.4 pg (27-33); MEAN CORPUSCULAR HGB CONC 34.3 g/dl (32-36); MEAN PLATELET VOLUME 10.3 fl (7.4-10.4); MONO % 9.5 % (0-9); PLATELET COUNT 158 K/uL (130-400); RED BLOOD COUNT 4.11 M/uL (4.40-5.70); RED CELL DISTRIBUTION WIDTH 13.3 % (11.5-14.5); WHITE BLOOD COUNT W/O DIFF 5.5 K/uL (4.2-12.2)
[2019-05-08 14:48] LABS: BILIRUBIN,TOTAL 1.5 mg/dL (0.2-1.0); CREATININE 1.8 mg/dL (0.7-1.2)
[2019-05-08 14:49] LABS: TOTAL PROTEIN 6.6 g/dL (6.6-8.7)
[2019-05-08 14:53] LABS: BILIRUBIN,DIRECT 0.7 mg/dL (0-0.3)
--- NOTE | 2019-05-08 15:58 | CT SCAN REPORT ---
EXAMINATION: CT Abdomen and Pelvis without IV Contrast EXAM DATE: 05/08/2019 3:27 PM TECHNIQUE: Standard protocol CT imaging of the abdomen and pelvis was performed without intravenous c ontrast. INDICATION: upper abdominal pain COMPARISON: CT abdomen and pelvis June 23, 2017 ENCOUNTER: Not applicable CT ABDOMEN AND PELVIS FINDINGS: Lung Bases: Included extent of the lung bases are clear. Hepatobiliary: Liver is enlarged measuring 23.7 x 17.1 cm. No focal abnormality identified. Gallbladd er is present. Pancreas: Limited noncontrast appearance of the pancreas shows no definite abnormality. Spleen: The spleen is not enlarged. Adrenals: The adrenal glands are normal. Kidneys, Ureters, & Bladder: Both kidneys have a normal size and morphology. There is no hydronephro sis. Ureter showing normal course and caliber bilaterally and the urinary bladder is unremarkable. Gastrointestinal: There appears to be wall thickening of the stomach diffusely. Underlying gastritis may be present. Need for further evaluation or direct visualization should be determined clinically. Small bowel is not obstructed. Appendix is normal. The large bowel is within normal limits. Reproductive Organs: Scattered calcifications within the prostate Lymphatic System: There is no adenopathy within the abdomen or pelvis. Vasculature: Normal caliber abdominal aorta. Atherosclerotic change is present. Peritoneum: No free fluid, free air, or inflammation Abdominal wall & Musculoskeletal: No suspicious bone lesions. Assessment of the solid organs, soft tissues, and vascular structures is overall limited on noncontra st imaging, IMPRESSION: Hepatomegaly. No hydronephrosis bilaterally. Nonobstructed bowel with normal appendix. Additional findings as detailed above Dictated by: Gail Al MD on 05/08/2019 3:39 PM. .
[2019-05-08 15:59] LABS: URINE APPEARANCE CLEAR; URINE BILIRUBIN NEGATIVE (NEGATIVE); URINE BLOOD NEGATIVE (NEGATIVE); URINE COLOR YELLOW; URINE KETONE NEGATIVE (NEGATIVE); URINE LEUKOCYTE ESTERASE NEGATIVE (NEGATIVE); URINE NITRITE NEGATIVE (NEGATIVE); URINE PROTEIN NEGATIVE (NEGATIVE); URINE UROBILINOGEN 0.2 E.U./dL (0.20 - 1.00)
[2019-05-08] MEDS ORDERED: PANTOPRAZOLE SODIUM 40 MG TABLET PO ONE (16:25)
== END 2019-05-08 16:43 | disposition home or self-care (01) ==
LOC: ER 12:56
DX: K29.00 Acute gastritis without bleeding (principal); R10.13 Epigastric pain; R94.5 Abnormal results of liver function studies; R63.4 Abnormal weight loss; I10 Essential (primary) hypertension
CPT/HCPCS: 74176; 80048; 80076; 81003; 83690; 84484; 85025; 93005; 93010; 96374; 99284; J2405

== ENCOUNTER 2019-05-17 06:50 | Day surgery (SDC) | payer OTHER ==
[2019-05-17] MEDS ORDERED: PROPOFOL 10 MG/ML VIAL IV ONE (06:51)
[2019-05-17] MEDS ORDERED: FENTANYL PF 100MCG/2ML VIAL IV ONE (06:51)
[2019-05-17] MEDS ORDERED: LIDOCAINE 2% MDV (20MG/ML) 20ML VIAL IV ONE (06:51)
--- NOTE | 2019-05-20 08:20 | Operative Note ---
SURGEON: Rupinder Hightower MD OPERATION: ESOPHAGOGASTRODUODENOSCOPY. INDICATIONS: This is a 63-year-old male with history of unexplained weight loss of about 30 pounds, 20 of which was within the last week, and abdominal pain who supposedly had an abdominal CT scan and presents now for esophagogastroduodenoscopy. POSTOPERATIVE DIAGNOSES: 1. Distal esophagitis, rule out Fagan's. 2. Diffuse gastritis. 3. Normal duodenum. ANESTHESIA: Sedation is per Anesthesia. Pulse oximetry was monitored throughout the procedure to maintain O2 saturation of 90% or greater. Supplemental oxygen was administered via nasal cannula. Cardiac and vital signs were monitored throughout the duration of the procedure, and they were stable. The procedure of esophagogastroduodenoscopy and risks and benefits of the procedure, including the risk of bleeding and perforation, among others, were explained to the patient who voiced understanding and agreed to have the procedure done. Physical examination was performed, and the patient was found stable for sedation. PROCEDURE: The patient was placed in the left lateral position. Sedation was initiated. A plastic bite block was inserted into the oral cavity. The Olympus [id number] gastroscope was introduced into the oral cavity and advanced to the proximal esophagus without difficulty. The esophageal mucosa was carefully examined upon introduction of the gastroscope. The proximal and mid and distal esophageal mucosa appeared normal with LA class C esophagitis, rule out Fagan's. The gastroscope was then advanced into the stomach, and surveillance of the stomach revealed diffuse erythema along the gastric body and antrum but no ulcers were noted. The gastric folds were permanent. The gastroscope was then advanced to the descending duodenum without difficulty. The duodenal bulb and descending duodenum appeared normal. The gastroscope was then withdrawn into the stomach and retroflexion was performed. There were no other lesions noted. The gastroscope was then straightened and withdrawn while carefully examining the gastric and esophageal mucosa. No other lesions noted. Multiple duodenal, gastric, and distal esophageal biopsies were obtained. The patient remained with stable vital signs and was transferred to the recovery room. RECOMMENDATIONS: 1. We will review the CT scan. 2. We will follow up on the biopsies. 3. Further recommendations will be forthcoming on the results of the biopsies and the CT scan review. Thank you for allowing me to participate in the care of your patient. DWAINE
== END 2019-05-17 08:50 | disposition home or self-care (01) ==
LOC: HOP 06:50
PROVIDERS: ATTEND Internal Medicine Gastroenterology
DX: R63.4 Abnormal weight loss (principal); K22.70 Barrett's esophagus without dysplasia; K29.60 Other gastritis without bleeding; J45.909 Unspecified asthma, uncomplicated; I10 Essential (primary) hypertension
CPT/HCPCS: 43239; 00731; J3010

== ENCOUNTER 2019-06-12 12:27 | Emergency (ER) | payer OTHER ==
[2019-06-12] MEDS ORDERED: MORPHINE SULFATE 5 MG/ML VIAL IVP ONE (13:22)
[2019-06-12] MEDS ORDERED: ONDANSETRON HCL IV 4 MG/2 ML VIAL IVP ONE (13:22)
--- NOTE | 2019-06-12 13:23 | Emergency Department Record ---
History of Present Illness - General Chief complaint: Vomiting Stated complaint: VOMITTING Time Seen by Provider: 06/12/19 12:55 Source: Patient Mode of Arrival: Wheelchair - History of Present Illness Initial comments: patient states abd pain which has been on and off for 6 weeks and seen here and since than he had a EGD for abnormal thicking of gastric area of the CT scan which showed only gastritis and he had a hida scan which was normal per patient. Vomiting started yesterday and his got worse yesterday and he admits to drinking 2 beers a couple of days ago and he used to drink heavy and he is tremulous now. Pale and he had a formed BM today. No blood in the vomit. Patient vomited 7 times since last night and significant other said he has been vomiting on and off for 6 weeks. Onset/Timin -: Week(s) Associated Abdominal Pain: Yes Location: Diffuse Severity: Severe Severity scale (1-10): 10 Quality: Cramping Consistency: Constant, Intermittent Improves with: None Worsens with: None Associated Symptoms: Nausea/vomiting - Related Data Allergies Allergy/AdvReac Type Severity Reaction Status Date / Time codeine [CODEINE] Allergy Unknown HIVES Verified 06/12/19 12:39 bandaids Allergy Mild doubles Uncoded 05/17/19 10:51 size of wound Travel/Exposure Screening - Travel/Exposure Within Last 30 Days Have you traveled within the last 30 days?: No - Travel/Exposure Within Last Year Have you traveled outside the [place] in the last year?: No - Additonal Travel/Exposure Details Have you been exposed to anyone with a communicable illness?: No - Travel Symptoms Symptom Screening: None Review of Systems Reviewed: No additional complaints except as noted below Constitutional: Reports: As per HPI. Denies: Chills, Fever, Malaise, Night sweats, Weakness, Weight change Eyes: Reports: As per HPI. Denies: Eye discharge, Eye pain, Photophobia, Vision change ENT: Reports: As per HPI. Denies: Congestion, Dental pain, Ear pain, Epistaxis, Hearing loss, Throat pain Respiratory: Reports: As per HPI. Denies: Cough, Dyspnea, Hemoptysis, Stridor, Wheezes Cardiovascular: Reports: As per HPI. Denies: Arrhythmia, Chest pain, Dyspnea on exertion, Edema, Murmurs, Orthopnea, Palpitations, Paroxysmal nocturnal dyspnea, Rheumatic Fever, Syncope Endocrine: Reports: As per HPI. Denies: Fatigue, Heat or cold intolerance, Polydipsia, Polyuria Gastrointestinal: Reports: As per HPI, Abdominal pain, Nausea, Vomiting. Denies: Constipation, Diarrhea, Hematemesis, Hematochezia, Melena Genitourinary: Reports: As per HPI. Denies: Dysuria, Frequency, Hematuria, Incontinence, Retention, Testicular pain, Testicular mass, Urgency Musculoskeletal: Reports: As per HPI. Denies: Arthralgia, Back pain, Gout, Joint swelling, Myalgia, Neck pain Skin: Reports: As per HPI. Denies: Bruising, Change in color, Change in hair/nails, Lesions, Pruritus, Rash Neurological: Reports: As per HPI. Denies: Abnormal gait, Confusion, Headache, Numbness, Paresthesias, Seizure, Tingling, Tremors, Vertigo, Weakness Psychiatric: Reports: As per HPI. Denies: Anxiety, Auditory hallucinations, Depression, Homicidal thoughts, Suicidal thoughts, Visual hallucinations Hematological/Lymphatic: Reports: As per HPI. Denies: Anemia, Blood Clots, Easy bleeding, Easy bruising, Swollen glands Past Medical History - SOCIAL HISTORY Smoking Status: Former smoker Alcohol Use: Rare Drug Use: None - RESPIRATORY Hx Respiratory Disorders: Yes Hx Asthma: Yes Hx Bronchitis: Yes Hx Dyspnea: Yes - CARDIOVASCULAR Hx Cardio Disorders: Yes Hx Cardiac Cath: Yes (at [facility]) - NEURO Hx Neuro Disorders: Yes Hx Headaches: Yes Hx Seizures: Yes (with mini stroke about 30 years ago) Hx TIA: Yes ("mini stroke" about 30 years ago) - GI Hx GI Disorders: Yes Hx Reflux: Yes Hx Pancreatitis: Yes Comment:: bloating, inguinal hernia repair - Hx Genitourinary Disorders: No - ENDOCRINE Hx Endocrine Disorders: No - MUSCULOSKELETAL Hx Musculoskeletal Disorders: Yes Hx Arthritis: Yes - PSYCH Hx Psych Problems: Yes Hx Anxiety: Yes Hx Depression: Yes - HEMATOLOGY/ONCOLOGY Hx Hematology/Oncology Disorders: No Hx Cancer: Yes (small cell carcinoma, basal cell carcinoma) Hx Chemotherapy: No Hx Radiation Therapy: No Family Medical History Any Significant Family History?: Yes Hx Alcohol Use: Father, Mother Hx Cancer: Father, Mother Hx Dementia: Mother Hx HTN: Mother Hx Liver Disease: Mother Hx Resp Disorders: Brother/Sister Hx Seizures: Mother Hx Stroke: Mother Physical Exam - General General Appearance: Alert, Oriented x3, Cooperative, No acute distress - Head Head exam: Normal inspection - Eye Eye exam: Normal appearance, PERRL Pupils: Normal accommodation - ENT ENT exam: Normal exam, Mucous membranes moist, Normal external ear exam, Normal orophraynx, TM's normal bilaterally Ear exam: Normal external inspection. negative: External canal tenderness Nasal Exam: Normal inspection. negative: Discharge, Sinus tenderness Mouth exam: Normal external inspection, Tongue normal Teeth exam: Normal inspection. negative: Dental caries Throat exam: Normal inspection. negative: Tonsillar erythema, Tonsillar exudate - Neck Neck exam: Normal inspection, Full ROM. negative: Tenderness - Respiratory Respiratory exam: Normal lung sounds bilaterally. negative: Respiratory distress - Cardiovascular Cardiovascular Exam: Regular rate, Normal rhythm, Normal heart sounds - GI/Abdominal GI/Abdominal exam: Soft, Guarding, Tenderness (all four quad painful and worse above the umbilicus) - Rectal Rectal exam: Deferred - exam: Deferred - Extremities Extremities exam: Normal inspection, Full ROM, Normal capillary refill. negative: Tenderness - Back Back exam: Reports: Normal inspection, Full ROM. Denies: Muscle spasm, Rash noted, Tenderness - Neurological Neurological exam: Alert, Normal gait, Oriented X3, Reflexes normal - Psychiatric Psychiatric exam: Normal affect, Normal mood - Skin Skin exam: Dry, Intact, Normal color, Warm Course Vital Signs 06/12/19 12:41 Temperature 98.5 F Pulse Rate 127 H Respiratory 20 Rate Blood Pressure 107/76 Pulse Ox 97 - Reevaluation(s) Reevaluation #1: discussed case with Dr Puga at [facility] and will transfer by ambulance for further evaluation 06/12/19 16:59 Medical Decision Making - Data Complexity MDM Data: Labs Ordered and/or Reviewed (hg 9.1, creat 2.0 bun 24 potassium 3.5), X-Ray Ordered and/or Reviewed (CT scan same as scan done 05/08/2019 thickened gastric wall) - Lab Data Result diagrams: 06/12/19 12:50 06/12/19 12:50 Disposition Clinical Impression: Elevated liver enzymes Abdominal pain Qualifiers: Abdominal location: generalized Qualified Code(s): R10.84 - Generalized abdominal pain Renal failure Qualifiers: Renal failure chronicity: acute Acute renal failure type: unspecified Qualified Code(s): N17.9 - Acute kidney failure, unspecified Forms: Patient Portal Access Quality - Quality Measures Quality Measures: N/A - Blood Pressure Screening Does Patient Have Any of the Following: No Blood Pressure Classification: Normal BP Reading Systolic Measurement: 107 Diastolic Measurement: 76 Screening for High Blood Pressure: < Normal BP, F/U Not Required > [G8783]
[2019-06-12] MEDS ORDERED: 0.9 % SODIUM CHLORIDE 1000ML 1,000 ML IV SCH (13:30)
[2019-06-12] MEDS: 0.9 % SODIUM CHLORIDE 1,000 ML BAG IV ONE (13:35)
[2019-06-12 14:06] LABS: ABSOLUTE NEUTROPHIL COUNT 5.14; HEMATOCRIT 28.2 % (42.0-52.0); HEMOGLOBIN 9.1 gm/dl (14.0-18.0); MEAN CELL VOLUME 89.5 fl (81-97); MEAN CORPUSCULAR HGB CONC 32.3 g/dl (32-36); MEAN PLATELET VOLUME 9.9 fl (7.4-10.4); PLATELET COUNT 162 K/uL (130-400); RED BLOOD COUNT 3.15 M/uL (4.40-5.70); RED CELL DISTRIBUTION WIDTH 14.6 % (11.5-14.5); WHITE BLOOD COUNT W/O DIFF 6.5 K/uL (4.2-12.2)
[2019-06-12 14:17] LABS: MEAN CORPUSCULAR HEMOGLOBIN 28.8 pg (27-33); PLATELET ESTIMATE NORMAL (NORMAL)
[2019-06-12 14:18] LABS: HYPOCHROMIA 1+
[2019-06-12 14:20] LABS: INR 1.1; PROTHROMBIN TIME (PATIENT) 11.7 SECONDS (9.5-12.1)
[2019-06-12 14:58] LABS: ALBUMIN 3.8 g/dL (4.0-5.0); BILIRUBIN,DIRECT 0.9 mg/dL (0-0.3); BILIRUBIN,TOTAL 1.5 mg/dL (0.2-1.0); TOTAL PROTEIN 7.2 g/dL (6.6-8.7)
[2019-06-12 14:59] LABS: LACTIC ACID 1.3 mmol/L (0.5-2.2)
[2019-06-12 15:13] LABS: URINE APPEARANCE CLEAR; URINE BILIRUBIN NEGATIVE (NEGATIVE); URINE BLOOD NEGATIVE (NEGATIVE); URINE COLOR YELLOW; URINE GLUCOSE (UA) NEGATIVE (NEGATIVE); URINE KETONE NEGATIVE (NEGATIVE); URINE LEUKOCYTE ESTERASE NEGATIVE (NEGATIVE); URINE NITRITE NEGATIVE (NEGATIVE); URINE PROTEIN NEGATIVE (NEGATIVE); URINE UROBILINOGEN 0.2 E.U./dL (0.20 - 1.00)
[2019-06-12 15:25] LABS: TRICYCLIC ANTIDEPRESSANT SCRN DETECTED
[2019-06-12 15:26] LABS: AMPHETAMINE SCREEN URINE NOT DETECTED; BARBITURATE SCREEN URINE NOT DETECTED; BENZODIAZEPINE SCREEN URINE NOT DETECTED; COCAINE SCREEN URINE NOT DETECTED; METHADONE SCREEN URINE NOT DETECTED; METHAMPHETAMINE SCREEN NOT DETECTED; OPIATE SCREEN URINE DETECTED; OXYCODONE SCREEN URINE NOT DETECTED; PHENCYCLIDINE SCREEN URINE NOT DETECTED; PROPOXYPHENE SCREEN URINE NOT DETECTED; THC SCREEN URINE DETECTED
--- NOTE | 2019-06-12 15:45 | CT SCAN REPORT ---
EXAMINATION: CT Abdomen and Pelvis without Contrast EXAM DATE: 06/12/2019 3:34 PM TECHNIQUE: Spiral CT images were obtained from the lung bases to the ischial tuberosities without int ravenous contrast. Coronal and sagittal 2-D reconstructions were made from source images. INDICATION: abdominal pain COMPARISON: 05/08/2019. The report of the previous exam is not available. FINDINGS: Evaluation of solid organs is degraded due to lack of intravenous contrast. Abdomen: The liver, spleen, pancreas, adrenals, and kidneys are normal. No free fluid or free air. Limited opa cification of bowel with oral contrast. Apparent diffuse thickening of the gastric wall is again seen , suggesting gastritis. No other bowel abnormalities seen. No bowel dilation. Healing left rib fractu res and old left transverse process fractures of the lumbar spine are again noted. Pelvis: The pelvic organs are unremarkable. No free fluid or free air. No inflammatory change. The appendix i s normal. IMPRESSION: 1. Gastric wall thickening, suggesting gastritis. The appearance is similar to previous. Dictated by: Daryl Junior MD on 06/12/2019 3:36 PM. .
== END 2019-06-12 18:31 | disposition short-term general hospital (02) ==
LOC: ER 12:27
DX: N17.9 Acute kidney failure, unspecified (principal); R94.5 Abnormal results of liver function studies; R10.84 Generalized abdominal pain; R11.2 Nausea with vomiting, unspecified; Z87.891 Personal history of nicotine dependence
CPT/HCPCS: 74176; 80048; 80076; 80305; 80320; 81003; 82140; 83605; 83690; 85027; 85610; 96361; 96374; 96375; 99285; J2405; J7030